=== PATIENT | female | born 1960 | race Caucasian/White ===

== ENCOUNTER 2017-09-09 20:26 | Emergency (ER) | payer OTHER ==
[~2017-09-09] VITALS: Ht 162.6 cm; Wt 71.8 kg
[2017-09-10] MEDS ORDERED: HYDROcodone/acetaminophen 10/325mg tab PO ONE (00:10)
[2017-09-10] MEDS ORDERED: ketorolac tromethamine 15mg/ml inj. IM ONE (00:10)
[2017-09-10 00:45] VITALS: BP 185/103
[2017-09-10] MEDS ORDERED: HYDR-3965 PO (01:50)
[2017-09-10] MEDS ORDERED: IBUP-1986 PO (01:50)
[2017-09-10] MEDS ORDERED: ONDA4TAB12 PO (01:50)
== END 2017-09-10 02:20 | disposition home or self-care (01) ==
LOC: ER 20:27
DX: S82.51XA Displaced fracture of medial malleolus of right tibia, initial encounter for closed fracture (principal); S09.90XA Unspecified injury of head, initial encounter; Z79.899 Other long term (current) drug therapy; W54.1XXA Struck by dog, initial encounter; Y93.89 Activity, other specified; Y92.89 Other specified places as the place of occurrence of the external cause; Y99.8 Other external cause status
CPT/HCPCS: 29125; 73564; 73610; 96372; 99284; A6449; J1885